=== PATIENT | male | born 1965 | race Caucasian/White ===

== ENCOUNTER 2023-08-16 13:12 | Emergency (ER) | payer OTHER | END 2023-08-16 14:40 | LOC: FB.ED 13:12 | DX: M21.612 Bunion of left foot (principal); M21.611 Bunion of right foot; I11.0 Hypertensive heart disease with heart failure; I50.9 Heart failure, unspecified; E03.9 Hypothyroidism, unspecified; F17.220 Nicotine dependence, chewing tobacco, uncomplicated; Z79.890 Hormone replacement therapy; Z79.899 Other long term (current) drug therapy | CPT/HCPCS: 99284 ==